=== PATIENT | female | born 1955 | race Two or more races ===

== ENCOUNTER 2019-10-10 13:09 | Emergency (ER) | payer OTHER ==
[~2019-10-10] VITALS: Ht 170.2 cm; Wt 109.0 kg
[2019-10-10 13:25] VITALS: BP 180/80
--- NOTE | 2019-10-10 13:26 | PHYS DOC ---
Adult General Chief Complaint Chief Complaint: MECHANICAL FALL HPI HPI Patient is a 63 year old F who fell off a curb at a local [employer] [place] and fell. She states she knew she was going to hit hard so she put her R hand up in front of her and the hand took the first hit and then she hit her face on her hand and hit her chest. Her cousin was with her and helped her stand up and she felt lightheaded so EMS was called and she was brought to ER for evaluation. On arrival here she is alert and oriented. She denies blood thinners. She has a mild headache and a small abrasion on her nose. The majority of her pain is her R wrist. She also has some pain in her upper chest but states it isn't "chest pain" but feels like she hit her chest hard on the pavement. Review of Systems Review of Systems Constitutional: Denies fever or chills HENT: Denies nasal congestion or sore throat. Has abrasion on nose, but no pain of nose.No epistaxis Respiratory: Denies cough or shortness of breath. Chest tender upper mid chest. Cardiovascular: Denies chest pain but tender over breasts and upper chest where hit ground. GI: Denies abdominal pain, nausea, vomiting, bloody stools or diarrhea : Denies dysuria or hematuria Musculoskeletal: Denies back pain or neck pain. Reports R wrist pain. Integument: Small abrasion on bridge of nose. Neurologic: Reports lightheaded at scene-resolved. Reports mild headache. All other systems were reviewed and found to be within normal limits, except as documented in this note. Current Medications Current Medications Current Medications Medications (Trade) Dose Ordered Sig/Ismael Start Time Stop Time Status Last Admin Dose Admin Acetaminophen/ Hydrocodone Bitart (Lortab 10/325) 1 tab 1X ONCE 10/10/19 14:00 10/10/19 14:01 DC Allergies Allergies Allergies Coded Allergies Type Severity Reaction Last Updated Verified aspirin Allergy Intermediate 10/10/19 Yes Physical Exam Physical Exam Constitutional: Well developed, well nourished, no acute distress, non-toxic appearance. HENT: Normocephalic, atraumatic, bilateral external ears normal, oropharynx moist, no oral exudates. Small abrasion across bridge of nose. Nontender with palpation of nose. Eyes: PERRLA, EOMI, conjunctiva normal, no discharge. Neck: Normal range of motion, no tenderness, supple, no stridor. Cardiovascular:Heart rate regular rhythm, no murmur Lungs & Thorax: Bilateral breath sounds clear to auscultation. Tenderness of upper chest with palpation. Abdomen: Bowel sounds normal, soft, no tenderness, no masses, no pulsatile masses. Skin: slight abrasion to bridge of nose Back: No tenderness, no CVA tenderness. Extremities: R wrist tender along distal radius and ulna. no obvious deformity, normal sensation and pulses. Neurologic: Alert and oriented X 3, normal motor function, normal sensory function, no focal deficits noted. Psychologic: Affect normal, judgement normal, mood normal. Current Patient Data Vital Signs Vital Signs Date Time Temp Pulse Resp B/P (MAP) Pulse Ox O2 Delivery O2 Flow Rate FiO2 10/10/19 13:25 98.0 71 20 180/80 (113) 98 Room Air 98.0 EKG EKG EKG: NSR, no acute findings, no STEMI Radiology/Procedures Radiology/Procedures CT head/neck are neg for acute finding CXR: neg for acute finding Wrist xray: suspected lunate fracture Course & Med Decision Making Course & Med Decision Making Pt placed in volar OCL splint for wrist fracture and given name and number for local orthopedic doctor for follow up. Discussed with pt that CT head and neck are reassuring but this does not rule out concussion and she should take it easy and rest and have close f/u with PCP and return with any worsening symptoms. Dragon Disclaimer Dragon Disclaimer This electronic medical record was generated, in whole or in part, using a voice recognition dictation system. Departure Departure Impression: Primary Impression: Wrist fracture, closed Additional Impressions: Facial contusion Fall Disposition: 01 HOME, SELF-CARE Condition: IMPROVED Referrals: NON,STAFF (PCP) KEI SALGADO II, MD Patient Instructions: Wrist Fracture Additional Instructions: While your head and neck CT are negative for acute injury, this does not rule out concussion and you should take it easy and rest. Return to ER with any worsening symptoms. You have a fracture (break) in your wrist and should call and follow up with the orthopedic doctor provided on your paperwork. Elevate and ice the area. Scripts Hydrocodone/Apap 5-325 (NORCO 5-325 TABLET) 1 Each Tablet 1-2 TAB PO Q4-6HRS PRN for PAIN, #20 TAB Prov: MAILE BLUM 10/10/19 Problem Qualifiers MAILE BLUM Oct 10, 2019 13:26
[2019-10-10] MEDS ORDERED: HYDROcodone/APAP 10/325 1 TAB TABLET PO ONE (14:00)
--- NOTE | 2019-10-10 14:00 | RAD ---
CHEST PA LATERAL, WRIST 3V RIGHT Technique: PA and lateral views of the chest were obtained. Clinical History: Upper chest pain status post fall Comparison: None. Findings: The heart and pulmonary vasculature appear within normal limits. The lungs are clear. The pleural margins are clear. Impression: No acute chest process is seen. End impression 3 views right wrist: AP lateral oblique views There is mild irregularity of the posterior proximal row seen on lateral view only. IMPRESSION: Possible corner fracture of the lunate. Recommend correlation with any point tenderness. Electronically signed by: Chance Bah III, MD (10/10/2019 1:57 PM) [id number]
--- NOTE | 2019-10-10 14:20 | EKG ---
[facility] [address] [place] [address] Test Date: 2019-10-10 Test Time: 13:26:35 Pat Name: DALJIT LAINEZ Department: Room: Gender: F [employer]: : [id number] Requested By: MAILE BLUM Order Number: [id number] Reading MD: Measurements Intervals [place] Rate: 71 P: 34 MA: 158 QRS: -13 QRSD: 106 T: 6 QT: 388 QTc: 426 Interpretive Statements SINUS RHYTHM LEFTWARD AXIS QRS(T) CONTOUR ABNORMALITY CONSIDER ANTEROLATERAL MYOCARDIAL DAMAGE POSSIBLY ABNORMAL ECG RI6.01 No previous ECG available for comparison
--- NOTE | 2019-10-10 14:29 | RAD ---
CT HEAD AND CERVICAL SPINE WO Clinical indications: Fall and hit face. Head injury. NONCONTRAST HEAD CT Technique: Noncontrast axial cross sectional scanning of the head was performed. PQRS compliance Statement One or more of the following individualized dose reduction techniques were utilized for this study: 1. Automated exposure control 2. Adjustment of the mA and/or kV according to patient size 3. Use of iterative reconstruction technique Findings: No acute intracranial hemorrhage or midline shift or mass-effect or hydrocephalus or extra-axial fluid collection is seen. No focal hypodense area or sulci effacement is seen to indicate an acute infarct or edema radiographically. No skull fracture or pneumocephalus is seen. No opacification of the mastoid sinuses or the middle ear cavities or the paranasal sinuses is seen. The maxillary sinuses are not completely seen in this study. Impression: No acute intracranial abnormality is seen. CT STUDY OF THE CERVICAL SPINE WITHOUT CONTRAST TECHNIQUE: Noncontrast helical CT scanning of the cervical spine was performed. Multiplanar 2-D reconstructions were generated. FINDINGS: No acute fracture or discitis or lytic process or anterolisthesis is evident. Mild degenerative facet arthropathy is evident. No perching of facet joints is seen. There is mild degenerative endplate spurring throughout the cervical spine. IMPRESSION: No acute fracture. Degenerative cervical spondylosis. Electronically signed by: Roberto Simmons MD (10/10/2019 2:26 PM) [facility] [place]
[2019-10-10] MEDS ORDERED: HYDR-3164 PO (14:45)
== END 2019-10-10 15:01 | disposition home or self-care (01) ==
LOC: ER 13:09
DX: S52.591A Other fractures of lower end of right radius, initial encounter for closed fracture (principal); S00.31XA Abrasion of nose, initial encounter; R42 Dizziness and giddiness; R51 Headache; Z88.6 Allergy status to analgesic agent; W03.XXXA Other fall on same level due to collision with another person, initial encounter; Y93.89 Activity, other specified; Y92.89 Other specified places as the place of occurrence of the external cause; Y99.8 Other external cause status
CPT/HCPCS: 29125; 70450; 71046; 72125; 73110; 93005; 99283; 99285